=== PATIENT | male | born 1985 | race Caucasian/White ===

== ENCOUNTER 2018-07-04 15:49 | Emergency (ER) | payer OTHER, SELFPAY ==
[2018-04-13 10:03] VITALS: BMI 23.0
[2018-07-04 15:51] VITALS: BP 133/93; PULSE 82; RESP 18; TEMP 36.9; O2SAT 98; BMI 22.9
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
[2018-07-04 18:52] VITALS: BP 129/80; PULSE 86; RESP 16; O2SAT 99
== END 2018-07-04 18:53 | disposition home or self-care (01) ==
LOC: ED 17:29
PROVIDERS: Emergency Provider Emergency Medicine
DX: S09.90XA Unspecified injury of head, initial encounter (principal); S16.1XXA Strain of muscle, fascia and tendon at neck level, initial encounter; S80.02XA Contusion of left knee, initial encounter; S39.012A Strain of muscle, fascia and tendon of lower back, initial encounter; V43.52XA Car driver injured in collision with other type car in traffic accident, initial encounter; Y93.9 Activity, unspecified; Y92.410 Unspecified street and highway as the place of occurrence of the external cause; Y99.9 Unspecified external cause status
CPT/HCPCS: 70450; 72100; 72125; 73564; 99282